=== PATIENT | female | born 1970 | race Hispanic/Latino ===

== ENCOUNTER → 2018-11-03 | Outpatient (CLI) | payer MEDICAID ==
[~2018-11-03] MED LIST: ASPI-555 PO; BENZ1TAB10 PO; BREX4TAB PO; DULO60CA63 PO; ERGO500014 PO; FOLI1TAB15 PO; GABA800T9 PO; LAMO200T7 PO; LEVO175T9 PO; METF-444 PO; MONT10TA24 PO; OMEG100014 PO
== END | disposition home or self-care (01) ==
LOC: RAH 15:30
PROVIDERS: ATTEND Family Medicine
DX: Z12.31 Encounter for screening mammogram for malignant neoplasm of breast (principal)
CPT/HCPCS: 77067

== ENCOUNTER → 2018-11-06 | Outpatient (CLI) | payer MEDICAID ==
[~2018-11-06] VITALS: Ht 165.1 cm; Wt 79.4 kg
[~2018-11-06] MED LIST changes: +REGADENOSON 0.4 MG/5 ML PF SYG IVP SCH
== END | disposition home or self-care (01) ==
LOC: SHCH 07:38
PROVIDERS: ATTEND Internal Medicine Cardiovascular Disease
DX: I25.119 Atherosclerotic heart disease of native coronary artery with unspecified angina pectoris (principal); Z95.5 Presence of coronary angioplasty implant and graft
CPT/HCPCS: 78452; 93017; 96374; A9500 ×2; J2785

== ENCOUNTER → 2019-06-14 | Outpatient (CLI) | payer MEDICAID ==
[~2019-06-14] MED LIST changes: -DULO60CA63 PO; +DULO60CA64 PO; +LAMO200T10 PO; -LAMO200T7 PO; -REGADENOSON 0.4 MG/5 ML PF SYG IVP SCH
== END | disposition home or self-care (01) ==
LOC: SHCH 08:39
PROVIDERS: ATTEND Internal Medicine Cardiovascular Disease
DX: R09.89 Other specified symptoms and signs involving the circulatory and respiratory systems (principal)
CPT/HCPCS: 93880

== ENCOUNTER → 2022-01-05 | Outpatient (CLI) | payer MEDICAID ==
[~2022-01-05] MED LIST changes: -ASPI-555 PO; +ASPI-556 PO; +MONT-39 PO; -MONT10TA24 PO
== END | disposition home or self-care (01) ==
LOC: SHCH 11:15
PROVIDERS: ATTEND Internal Medicine Cardiovascular Disease
DX: R07.9 Chest pain, unspecified (principal)
CPT/HCPCS: 93306

== ENCOUNTER → 2022-01-12 | Outpatient (CLI) | payer MEDICAID ==
[~2022-01-12] MED LIST changes: +ARIP15TA18 PO; +ATOR10 PO; +CLON0.5T4 PO; +DULA3PEN SQ; +EMPA25TA PO; +EZET-57 PO; +GLIP10TA19 PO; +ICOS1CAP PO; +INSLAN SQ; +INSU100I15 SQ; +LAMO100T16 PO; +LEVO100T4 PO; +METO100T14 PO; +REGADENOSON 0.4 MG/5 ML PF SYG IVP SCH; +SAXA5TAB PO; +TEMA15CA PO; +TRINTELLIX PO
== END | disposition home or self-care (01) ==
LOC: SHCH 07:55
PROVIDERS: ATTEND Internal Medicine Cardiovascular Disease
DX: R07.9 Chest pain, unspecified (principal)
CPT/HCPCS: 78452; 93017; J2785; A9500 ×2; 96374

== ENCOUNTER 2022-02-08 08:21 | Day surgery (SDC) | payer MEDICAID ==
[2022-02-04 11:20] LABS: APPEARANCE,URINE CLEAR (CLEAR); BILIRUBIN,URINE NEGATIVE (NEGATIVE); COLOR,URINE YELLOW (YELLOW); GLUCOSE, URINE (UA) >=1000 mg/dL (NEGATIVE); KETONES,URINE NEGATIVE (NEGATIVE); LEUKOCYTE ESTERASE ,URINE NEGATIVE (NEGATIVE); NITRATE,URINE NEGATIVE (NEGATIVE); OCCULT BLOOD,URINE NEGATIVE (NEGATIVE); PH,URINE 5.5 (5.0-8.0); PROTEIN,URINE NEGATIVE (NEGATIVE); UROBILINOGEN,URINE 0.2 mg/dL (0.2-1.0)
[2022-02-04 11:34] LABS: BASOPHILS % (AUTO) 0.6 % (0.0-5.0); EOSINOPHILS % (AUTO) 3.1 % (0.0-8.0); HEMATOCRIT 43.8 % (36-48); LYMPHOCYTES % (AUTO) 33.9 % (21.0-51.0); MEAN CORPUSCULAR HEMOGLOBIN 26.9 pg (27.0-33.0); MEAN CORPUSCULAR HGB CONC 31.1 g/dL (32.0-36.0); MEAN CORPUSCULAR VOLUME 86.6 fL (79-99); MONOCYTES % (AUTO) 6.4 % (3.0-13.0); NEUTROPHILS % (AUTO) 55.8 % (40.0-77.0); PLATELET COUNT (AUTO) 135 K/uL (130-400); RED BLOOD CELL COUNT(AUTO) 5.06 MIL/uL (4.00-5.50); RED CELL DISTRIBUTION WIDTH 13.8 % (11.0-15.5); WHITE BLOOD COUNT (AUTO) 4.9 K/uL (4.8-10.8)
[2022-02-04 11:38] LABS: BACTERIA,URINE Rare /HPF (None Seen); RBC,URINE 0-1 /HPF (0-1); SQUAMOUS EPITHELIAL CELL,UR Rare /HPF (0-2); WBC,URINE 0-1 /HPF (0-1)
[2022-02-04 11:49] LABS: CREATININE 0.8 mg/dL (0.5-1.5); POTASSIUM 3.6 mmol/L (3.5-5.1)
[2022-02-04 11:53] LABS: B-TYPE NATRIURETIC PEPTIDE 11 pg/mL (0-100)
[2022-02-04 12:30] LABS: PROTHROMBIN TIME 10.9 SEC (9.6-11.6)
[2022-02-04 12:32] LABS: PARTIAL THROMBOPLASTIN TIME 27.7 SEC (26.3-35.5)
[2022-02-05 09:39] VITALS: BP 151/83
[~2022-02-08] VITALS: Ht 167.6 cm; Wt 81.2 kg
[2022-02-08] VITALS (10 sets, daily range): BP systolic 121–141; BP diastolic 66–95
[~2022-02-08 08:21] MED LIST changes: -BENZ1TAB10 PO; -BREX4TAB PO; -DULO60CA64 PO; +DiphenhydrAMINE HCL 50 MG/ML VIAL IVP PRN; -ERGO500014 PO; -LAMO200T10 PO; -LEVO175T9 PO; -MONT-39 PO; -OMEG100014 PO; -REGADENOSON 0.4 MG/5 ML PF SYG IVP SCH
[2022-02-08] MEDS ORDERED: 0.9%NACL 1000ML 1,000 ML IV ONE (10:44)
[2022-02-08] MEDS ORDERED: LIDOCAINE HCL 1% 20 ML VIAL ONE (11:15)
[2022-02-08] MEDS ORDERED: HEPARIN 10,000 UNIT/10ML (1,000 UNIT/ML) VIAL ONE (11:15)
[2022-02-08] MEDS ORDERED: MEPERIDINE-PF 25 MG/ML SYG ONE ×4 (11:15→11:39)
[2022-02-08] MEDS ORDERED: SODIUM BICARB 50MEQ 50ML VIAL 50 ML ONE (11:15)
[2022-02-08] MEDS ORDERED: NITROGLYCERIN 50MG VIAL ONE (11:15)
[2022-02-08] MEDS ORDERED: IOHEXOL 350 MG/ML 100ML INFUS..BTL IV ONE (11:15)
[2022-02-08] MEDS ORDERED: IOHEXOL-350 50ML VIAL IV ONE (11:15)
[2022-02-08] MEDS ORDERED: MIDAZOLAM HCL 1 MG/ML 2ML VIAL ONE ×5 (11:15→11:45)
[2022-02-08] MEDS ORDERED: SOLU-MEDROL 125MG VIAL ONE (11:17)
[2022-02-08] MEDS ORDERED: LABETALOL 20MG SYG IV ONE (11:42)
[2022-02-08] MEDS ORDERED: MEPERIDINE-PF 50 MG/ML SYG ONE (11:45)
[2022-02-08] MEDS ORDERED: METOPROLOL TARTRATE 1 MG/ML 5ML VIAL IV ONE (12:17)
[2022-02-08] MEDS ORDERED: TICAGRELOR 90 MG TABLET ONE (12:37)
[2022-02-08] MEDS ORDERED: ASPIRIN 81MG CHEW TAB ONE (12:37)
[2022-02-08] MEDS ORDERED: GLUCAGON 1MG KIT 1 MG ML IM PRN (13:00)
[2022-02-08] MEDS ORDERED: DEXTROSE 50%-WATER 50 ML DISP.SYRIN IV PRN (13:00)
[2022-02-08] MEDS ORDERED: INSULIN HUMULIN R 100 UNIT/ML 3ML SQ SCH (16:30)
== END 2022-02-08 18:55 | disposition home or self-care (01) ==
LOC: DAH 08:21
PROVIDERS: ATTEND Internal Medicine Cardiovascular Disease
DX: I25.119 Atherosclerotic heart disease of native coronary artery with unspecified angina pectoris (principal); T82.855A Stenosis of coronary artery stent, initial encounter; I11.0 Hypertensive heart disease with heart failure; I50.32 Chronic diastolic (congestive) heart failure; E03.9 Hypothyroidism, unspecified; E78.5 Hyperlipidemia, unspecified; G47.33 Obstructive sleep apnea (adult) (pediatric); E66.9 Obesity, unspecified; K21.9 Gastro-esophageal reflux disease without esophagitis; Z79.01 Long term (current) use of anticoagulants; Z79.899 Other long term (current) drug therapy; Z79.82 Long term (current) use of aspirin; Z79.4 Long term (current) use of insulin; Z88.8 Allergy status to other drugs, medicaments and biological substances; Z88.6 Allergy status to analgesic agent; Z91.013 Allergy to seafood; Z68.29 Body mass index [BMI] 29.0-29.9, adult; Y83.8 Other surgical procedures as the cause of abnormal reaction of the patient, or of later complication, without mention of misadventure at the time of the procedure
CPT/HCPCS: 80048; 83880; 85025; 85610; 85730; 81001; 36415; 93005; 93458; 82948 ×2; C9600; C1769; C1887; C1894; C1760; C1874 ×2; C1725; Q9965; J1200; J3490 ×3; J7030; J2930; J1644 ×2; J2250 ×5; J2175 ×5; Q9967 ×2; A4215; A4222; A4221; A4663; A4216; A4606; A4223 ×3; 99156; 99157

== ENCOUNTER → 2022-03-10 | Outpatient (CLI) | payer MEDICAID ==
[~2022-03-10] MED LIST changes: +ALBUTEROL 0.083% 2.5 MG/3 ML INH IH ONE; -DiphenhydrAMINE HCL 50 MG/ML VIAL IVP PRN
== END | disposition home or self-care (01) ==
LOC: RESP 12:40
PROVIDERS: ATTEND Internal Medicine Cardiovascular Disease
DX: R06.02 Shortness of breath (principal)
CPT/HCPCS: 94060

== ENCOUNTER → 2023-06-17 | Outpatient (CLI) | payer MEDICAID ==
[~2023-06-17] MED LIST changes: -ALBUTEROL 0.083% 2.5 MG/3 ML INH IH ONE; +REGADENOSON 0.4 MG/5 ML PF SYG IVP ONE
== END | disposition home or self-care (01) ==
LOC: SHCH 08:23
PROVIDERS: ATTEND Internal Medicine Cardiovascular Disease
DX: I25.10 Atherosclerotic heart disease of native coronary artery without angina pectoris (principal)
CPT/HCPCS: 78452; 96374; 93017; J2785; A9500 ×2

== ENCOUNTER → 2023-07-13 | Outpatient (CLI) | payer MEDICAID ==
[~2023-07-13] MED LIST changes: -REGADENOSON 0.4 MG/5 ML PF SYG IVP ONE
== END | disposition home or self-care (01) ==
LOC: SHCH 08:18
PROVIDERS: ATTEND Internal Medicine Cardiovascular Disease
DX: I25.10 Atherosclerotic heart disease of native coronary artery without angina pectoris (principal); I10 Essential (primary) hypertension; E78.5 Hyperlipidemia, unspecified; Z98.61 Coronary angioplasty status
CPT/HCPCS: 93306

== ENCOUNTER 2024-03-08 08:09 | Day surgery (SDC) | payer MEDICAID ==
[2024-03-08] VITALS (11 sets, daily range): BP systolic 105–162; BP diastolic 62–89; PULSE 58–66; RESP 16–21; TEMP 96.6–97.9
[~2024-03-08] VITALS: Ht 167.6 cm; Wt 81.6 kg
[~2024-03-08 08:09] MED LIST changes: +0.9%NACL 1000ML 1,000 ML IV ONE; -ARIP15TA18 PO; +ARIP30TA22 PO; -ASPI-556 PO; -CLON0.5T4 PO; -DULA3PEN SQ; +DULA4.5P SQ; +DULO60CA64 PO; -EMPA25TA PO; +FENO54TA6 PO; +GABA-1555 PO; -GABA800T9 PO; -GLIP10TA19 PO; +HYDR-3422 PO; -ICOS1CAP PO; +INSU100C14 SQ; -INSU100I15 SQ; -LEVO100T4 PO; +LINA145C PO; -METF-444 PO; +PIOG30TA70 PO; -SAXA5TAB PO; -TEMA15CA PO; +TICA90TA PO; -TRINTELLIX PO
[2024-03-08] MEDS: INSULIN humuLIN R 100 UNIT/ML 3ML ONE (10:11)
[2024-03-08] MEDS ORDERED: proPOFol 10 MG/ML 20ML VIAL IV ONE (10:40)
== END 2024-03-08 12:25 | disposition home or self-care (01) ==
LOC: SUH 08:09 → DAH 08:09 → SUH 12:25
PROVIDERS: ATTEND Internal Medicine Gastroenterology
DX: R13.10 Dysphagia, unspecified (principal); K29.50 Unspecified chronic gastritis without bleeding; K21.00 Gastro-esophageal reflux disease with esophagitis, without bleeding; K31.89 Other diseases of stomach and duodenum; R14.0 Abdominal distension (gaseous); K59.04 Chronic idiopathic constipation; K76.0 Fatty (change of) liver, not elsewhere classified; I25.10 Atherosclerotic heart disease of native coronary artery without angina pectoris; E78.5 Hyperlipidemia, unspecified; E03.9 Hypothyroidism, unspecified; K31.7 Polyp of stomach and duodenum; I10 Essential (primary) hypertension; E11.9 Type 2 diabetes mellitus without complications; Z95.5 Presence of coronary angioplasty implant and graft; F41.9 Anxiety disorder, unspecified; F20.9 Schizophrenia, unspecified; F31.9 Bipolar disorder, unspecified; Z90.49 Acquired absence of other specified parts of digestive tract; Z90.710 Acquired absence of both cervix and uterus; Z79.899 Other long term (current) drug therapy; Z98.890 Other specified postprocedural states; Z79.4 Long term (current) use of insulin
CPT/HCPCS: 43251; 82948 ×3; 43239; J1815; J7030 ×2; J3490; A4620; A7002; J2704